=== PATIENT | female | born 1965 | race Caucasian/White ===

== ENCOUNTER 2024-08-18 01:42 | Day surgery (SDC) | payer BC, SELFPAY ==
[2024-08-07 09:15] VITALS: BMI 20.2
--- OUTSIDE RECORDS SUMMARY | 2024-08-18 01:52 | XMS_ITS | Patient Health Summary ---
Author Organization [facility] Address [address] [facility] [facility] [place] [address] Care Team Providers Care Patient Registration Representative Name Role Phone Marck Keith MD Primary Care Provider [phone] [facility],non-owned Affiliates and Associated Physician Practices is amultiple site organization consisting of ambulatory clinics and hospital sitesin [place], [place], [place] and [place]. This disclosure is being madepursuant to the Care Everywhere program and may not contain all information available regarding this patient. Last updated 18.[facility] [employer] Allergies No known active allergies Medications * Be aware that medications may not be up to date on this document. Alwaysverify current medications with the patient. * liothyronine (CYTOMEL) 25 MCG tablet(Started 09/22/2021) Take 0.5 (one-half) tablet by mouth 2 times daily * Progesterone 100 MG capsule(Started 09/22/2021) Take 1 (one) capsule by mouth at bedtime * vitamin D3 (CHOLECALCIFEROL) 10 MCG (400 UNIT) capsule Take 1 (one) capsule by mouth once daily * Magnesium Oxide 400 MG Take 1 capsule by mouth once daily * multivitamins (ONE A DAY) capsule Take 1 (one) capsule by mouth once daily Active Problems Problem Noted Date Diagnosed Date Essential hypertension 12/18/2018 Acne 11/22/2010 Immunizations * Covid Pfizer primary monovalent 12+ yr 0.3mL Purple cap(Given 03/08/2021, 02/15/2021) * INFLUENZA VACCINE(Given 04/22/2019) * INFLUENZA VACCINE, CELL CULTURE, QUADR. (FLUCELVAX QUADRIVALENT; 6MO+) (CCIIV4)(Given 04/16/2020) * TDAP (7yrs+)(Given 04/26/2020) Social History Tobacco Use Types Packs/Day Years Used Date Smoking Tobacco: Never Smokeless Tobacco: Never Alcohol Use Standard Drinks/Week Comments No 0 (1 standard drink = 0.6 oz pur e alcohol) Sex and Gender Information Value Date Recorded Sex Assigned at Not on file Gender Identity Not on file Sexual Orientation Not on file Procedures * HCG URINE QUALITATIVE - POCT (IP) [facility](Performed 11/29/2010) * HCG URINE QUALITATIVE - POCT (IP) [facility](Performed 10/12/2010) * PATHOLOGY/GENETICS HISTORICAL-ONBASE(Performed 10/12/2010) * LAB HISTORICAL RESULTS-ONBASE(Performed 10/12/2010) * LAB HISTORICAL RESULTS-ONBASE(Performed 10/12/2010) * LAB HISTORICAL RESULTS-ONBASE(Performed 10/12/2010) * LAB HISTORICAL RESULTS-ONBASE(Performed 10/12/2010) * LAB HISTORICAL RESULTS-ONBASE(Performed 10/12/2010) * LAB HISTORICAL RESULTS-ONBASE(Performed 10/12/2010) * LAB HISTORICAL RESULTS-ONBASE(Performed 10/12/2010) * CBC W AUTO DIFFERENTIAL(Performed 10/08/2010) * HEPATIC FUNCTION PANEL(Performed 10/08/2010) * LIPID PROFILE(Performed 10/08/2010) Results * HCG URINE QUALITATIVE - POCT (IP) [facility] (11/29/2010 10:37 AM CDT) Only the most recent of2 resultswithin the time period is included. Test Urine Neg [facility] Urine specimen (specimen) 11/29/2010 10:37 AM CDT Lexi Casanova MD LAB - POINT OF CARE ORDERABLES [facility] * PATHOLOGY/GENETICS HISTORICAL-ONBASE (10/12/2010) 10/12/2010 Valarie Josue MD LAB - CHEMISTRY OR DERABLES [facility] * LAB HISTORICAL RESULTS-ONBASE (10/12/2010) Only the most recent of7 resultswithin the time period is included. 10/12/2010 Valarie Josue MD LAB - CHEMISTRY OR DERABLES [facility] * (ABNORMAL) CBC W AUTO DIFFERENTIAL (10/08/2010 10:05 AM CDT) WBC 5.8 3.8 - 10.8 Thousand/u L [facility] RBC 4.75 3.80 - 5.10 Million/uL [facility] Hemoglobin 13.9 11.7 - 15.5 g/dL [facility] Hematocrit 41.5 35.0 - 45.0 % [facility] MCV 87.3 80.0 - 100.0 fL [facility] MCH 29.2 27.0 - 33.0 pg [facility] MCHC 33.5 32.0 - 36.0 g/dL [facility] RDW 15.1(H) 11.0 - 15.0 % [facility] Platelet 253 140 - 400 Thousand/u L [facility] Neutrophils Absolute 3381 1500 - 7800 cells/uL [facility] Lymphocyte Absolute 1723 850 - 3900 cells/uL [facility] Monocytes Absolute 568 200 - 950 cells/uL [facility] Eosinophils Absolute 116 15 - 500 cells/uL [facility] Basophils Absolute 12 0 - 200 cells/uL [facility] Neutrophils % 58.3 % [facility] Lymphocytes % 29.7 % [facility] Monocytes % 9.8 % [facility] Eosinophils % 2.0 % [facility] Basophils % 0.2 % [facility] Comment: REPORT COMMENT: FASTING Test Performed at: [facility] [address] ??[phone] ROSS GUADALUPE DO,MPH 10/08/2010 10:0 5 AM CDT 10/08/2010 10:11 AM CDT Lexi Casanova MD LAB - HEMATOLOGY ORD ERABLES [facility] * HEPATIC FUNCTION PANEL (10/08/2010 10:05 AM CDT) Protein Total 7.8 6.2 - 8.3 g/dL [facility] Albumin 4.8 3.6 - 5.1 g/dL [facility] Globulin 3.0 2.2 - 3.9 g/dL (calc) [facility] Albumin/Globulin Ratio 1.6 1.0 - 2.1 (calc) [facility] Bilirubin Total 0.5 0.2 - 1.2 mg/dL [facility]) Bilirubin Direct 0.1 < OR = 0.2 mg/dL [facility]) Bilirubin Indirect 0.4 0.2 - 1.2 mg/dL (calc) [facility]) Alkaline Phosphatase 101 33 - 115 U/L [facility] AST 25 10 - 35 U/L [facility] ALT 21 6 - 40 U/L [facility]) Comment: Test Performed at: [facility] [place], [place] ??[phone] ROSS GUADALUPE DO,MPH 10/08/2010 10:0 5 AM CDT 10/08/2010 10:11 AM CDT Lexi Casanova MD LAB - CHEMISTRY [facility] Performing Organization Address [facility] Co de Phone Number [facility] * (ABNORMAL) LIPID PROFILE (10/08/2010 10:05 AM CDT) Cholesterol Total 165 125 - 200 mg/dL [facility]) HDL 34(L) > OR = 46 mg/dL [facility]) Triglycerides 128 <150 mg/dL [facility]) LDL Calculated 105 <130 mg/dL (calc) [facility]) Comment: Desirable range <100 mg/dL for patients with CHD or diabetes and <70 mg/dL for diabetic patients with known heart disease. Chol/HDL Ratio 4.9 < OR = 5.0 (calc) [facility]) Comment: Test Performed at: [employer] [employer] [facility] [place], [place] ??[phone] ROSS GUADALUPE DO,MPH 10/08/2010 10:0 5 AM CDT 10/08/2010 10:11 AM CDT Lexi Laura Casanova MD LAB - CHEMISTRY [facility] Organization Address City/State/ZIP Co de Phone Number [facility]) Care Teams Patient Registration Representative Relationship Specialty Start Date End Date Marck Keith MD PCP - General 07/30/08
--- OUTSIDE RECORDS SUMMARY | 2024-08-18 01:52 | XMS_ITS | Referral Summary ---
Author Organization [facility] [address] Address [address] [place] [address] Care Team Providers Care Seconds Grader Name Role Phone Moo Solano DO Unavailable Moo Solano DO Primary Care Provide r Encounters Date Type Department Care Team Description 06/09/2024 8:15 AM GROUP UNDERWRITER - 06/09/2024 11:59 PM [facility] Hospital Encounter [facility] Breast [facility] ([facility]) [address] [place] [address] Screening mammogram, encounter for Discharge Disposition: Discharge to home or self care from Last 3 Months Allergies No known active allergies Medications magnesium oxide 400 mg magnesium capsule Take by mouth Active multivitamin capsule Take 1 capsule by mouth daily Active cholecalcifero l (VITAMIN D-3) 400 unit capsule Active neomycin-polym yxin-HC (CORTISPORIN) 3.5-10,000-1 mg/mL-unit/mL- % otic suspensionIndi cations:Acute contact otitis externa of left ear Administer 3 drops into the left ear 3 (three) times a day 4 mL 2 Active metFORMIN XR (GLUCOPHAGE XR) 500 mg 24 hr tablet Take 2 tablets (1,000 mg total) by mouth daily 2 Active progesterone (PROMETRIUM) 100 mg capsule Take 1 capsule (100 mg total) by mouth nightly 2 Active spironolactone (ALDACTONE) 50 mg tablet Take 1 tablet (50 mg total) by mouth daily 2 Active Mounjaro 5 mg/0.5 mL pen injector INJECT 0.5ML SUBCUTANEOUSLY EVERY WEEK 2 Active liothyronine (CYTOMEL) 5 mcg tablet 2 Active Active Problems Problem Noted Date Diagnosed Date Impacted cerumen of left ear 04/14/2024 Conductive hearing loss of left ear 04/14/2024 Immunizations Name Administration Dates Next Due Pfizer SARS-CoV-2 Monovalent Vaccination (12+ Yrs) PURPLE 03/08/2021,02/15/2021 Social History Tobacco Use Types Packs/Day Years Used Date Smoking Tobacco: Never Smokeless Tobacco: Never AUDIT-C Answer Date Recorded Q1: How often do you have a drink containing alc ohol? Never 11/19/2023 Average Number of Drinks Not on file 024 Frequency of Binge Drinking Not on file 10/22 Comments Unknown Sex and Gender Information Value Date Recorded Sex Assigned at Not on file Legal Sex Female 3:50 AM GROUP UNDERWRITER Gender Identity Not on file Sexual Orientation Not on file Last Filed Vital Signs Vital Sign Reading Time Taken Comments Blood Pressure - - Pulse - - Temperature - - Respiratory Rate 18 04/14/2024 11:34 AM CDT Oxygen Saturation - - Inhaled Oxygen Concentration - - Weight 65.8 kg (145 lb) 04/14/2024 11:34 AM CDT Height 177.8 cm (5' 10 ) 04/14/2024 11:34 AM CDT Body Mass Index 20.81 04/14/2024 11:34 AM CDT Plan of Treatment Not on file Procedures Procedure Name Priority Date/Time Associated Diagnosis Comments SCREENING MAMMOGRAM BILATERAL W RODGER Schedule Routine, Read Routine (OP Routine) 06/09/2024 8:46 AM GROUP UNDERWRITER Screening mammogram, encounter for from Last 3 Months Results * Screening Mammogram Bilateral W Rodger (06/09/2024 8:46 AM GROUP UNDERWRITER) Anatomical Region Laterality Modality Breast Bilateral Mammography Narrative 06/10/2024 1:41 PM GROUP UNDERWRITER Mammogram Technique: Bilateral Digital Breast Tomosynthesis, Bilateral C-view 2D Screening mammogram. ??Views obtained: ??bilateral craniocaudal and bilateral mediolateral oblique. ??Computer Aided Detection was performed. Mammogram Findings: The present examination has been compared to prior imaging studies performed at [facility] on 09/21/2020, 01/17/2022 and 06/06/2023. There are scattered areas of fibroglandular density. There is no suspicious abnormality in either breast. Impression: There is no mammographic evidence of malignancy. Annual screening mammography is recommended. OVERALL FINAL ASSESSMENT: BI-RADS CATEGORY 1: ??Negative. Procedure Note Massiel Ramesh MD - 06/10/2024 Mammogram Technique: Bilateral Digital Breast Tomosynthesis, Bilateral C-view 2D Screening mammogram. Views obtained: bilateral craniocaudal and bilateral mediolateral oblique. Computer Aided Detection was performed. Mammogram Findings: The present examination has been compared to prior imaging studies performed at [facility] on 09/21/2020, 01/17/2022 and 06/06/2023. There are scattered areas of fibroglandular density. There is no suspicious abnormality in either breast. Impression: There is no mammographic evidence of malignancy. Annual screening mammography is recommended. OVERALL FINAL ASSESSMENT: BI-RADS CATEGORY 1: Negative. us Self Screening Mammogram IMG MAMMO PROCEDURES Fi nal Result from Last 3 Months Insurance [facility] [place] [facility] Care Teams Seconds Grader Relationship Specialty Start Date End Date Moo Solano DO [address] [id number] PCP - General Internal Medicine 04/08/24 Moo Solano DO Calli [address] [id number] Referring Physician Internal Medicine 06/06/23
--- OUTSIDE RECORDS SUMMARY | 2024-08-18 01:52 | XMS_ITS | Clinical Summary ---
Author Organization [facility] Address [facility] [facility] [place] [address] Care Team Providers Care Fuel House Attendant Name Role Phone Marck Keith MD Primary Care Provider [phone] Source Comments [facility],non-owned Affiliates and Associated Physician Practices is amultiple site organization consisting of ambulatory clinics and hospital sitesin [place], [place], [place] and [place]. This disclosure is being madepursuant to the Care Everywhere program and may not contain all information available regarding this patient. Last updated 18.[facility] Allergies No known active allergies Medications * Be aware that medications may not be up to date on this document. Alwaysverify current medications with the patient. Medication Sig Dispensed Refills Start Date End Date Status liothyronine (CYTOMEL) 25 MCG tablet Take 0.5 (one-half) tablet by mouth 2 times daily 09/22/2021 Active Progesterone 100 MG capsule Take 1 (one) capsule by mouth at bedtime 09/22/2021 Active vitamin D3 (CHOLECALCIFEROL) 10 MCG (400 UNIT) capsule Take 1 (one) capsule by mouth once daily Active Magnesium Oxide 400 MG Take 1 capsule by mouth once daily Active multivitamins (ONE A DAY) capsule Take 1 (one) capsule by mouth once daily Active Active Problems Problem Noted Date Diagnosed Date Essential hypertension 12/18/2018 Acne 11/22/2010 Immunizations Name Administration Dates Next Due Covid Pfizer primary monoval ent 12+ yr 0.3mL Purple cap 03/08/2021,02/15/2021 INFLUENZA VACCINE 04/22/2019 INFLUENZA VACCINE, CELL CULT URE, QUADR. (FLUCELVAX QUADRIVALENT; 6MO+) (CCIIV4) 04/16/2020 TDAP (7yrs+) 04/26/2020 Family History Medical History Relation Name Comments Cancer Father Prostate Colon Liver; Status: Alive Cancer - Colon Father Cancer - Prostate Father Arthritis - Osteo Mother Hypertension Mother Cancer - Skin, Melanoma Neg Hx Cancer - Skin, Non Melanoma Neg Hx Relation Name Status Comments Father Mother Social History Tobacco Use Types Packs/Day Years Used Date Smoking Tobacco: Never Smokeless Tobacco: Never Alcohol Use Standard Drinks/Week Comments No 0 (1 standard drink = 0.6 oz pur e alcohol) Sex and Gender Information Value Date Recorded Sex Assigned at Not on file Gender Identity Not on file Sexual Orientation Not on file Plan of Treatment Upcoming Encounters Date Type Department Care Team (Late st Contact Info) Description 09/30/2024 1:30 PM CDT Cosmetic Visit [facility] - Cosmetic Dermatology [address] [place] [address] Elli Archer MD [address] [facility] [address] [address] Health Maintenance Due Date Last Done Comments COLOGUARD (AGES 45-75) - COLON CA SCREENING 1964 COLON MONITORING 1964 COLONOSCOPY - COLON CA SCREENING 1964 CT COLONOGRAPHY - COLON CA SCREENING 1964 Colorectal Cancer Screening 1964 FIT - COLON CA SCREENING 1964 FLEX SIG - COLON CA SCREENING 1964 PAP SMEAR 1964 HIV SCREENING 1979 HEPATITIS C SCREENING 06/27/1982 PNEUMOCOCCAL VACCINE 50+ (1 of 1 - PCV) 2014 ZOSTER VACCINE (1 of 2) 2014 LIPID TESTING 10/09/2015 10/08/2010 COVID-19 VACCINE (3 season) 2024 03/08/2021, 02/15/2021 INFLUENZA VACCINE (#1) 2024 04/16/2020, 2018 DEPRESSION SCREENING 07/23/2024 MAMMOGRAM 06/06/2025 06/06/2023, 05/23, 01/17/2022, Additional history exists DTAP/TDAP/TD VACCINES (2 - Td or Tdap) 04/26/2030 04/26/2020 Respiratory Syncytial Virus (RSV) Vaccine Pt: or over 60 yrs (1 - 1-dose 75+ series) 2039 HEPATITIS B VACCINE Aged Out No longe r eligible based on patient's age to complete this topic HIB VACCINE Aged Out No longer eligi ble based on patient's age to complete this topic HPV VACCINE Aged Out No longer eligi ble based on patient's age to complete this topic MENINGOCOCCAL (Group B) VACCINE Aged Out No longer eligible based on patient's age to complete this topic MENINGOCOCCAL VACCINE Aged Out No jason ekaterina eligible based on patient's age to complete this topic Procedures Procedure Name Priority Date/Time Associated Diagnosis Comments LIPID PROFILE Routine 10/08/2010 10:05 AM CDT from Last 3 Months or Most Recently Relevant to Health Maintenance Results * (ABNORMAL) LIPID PROFILE (10/08/2010 10:05 AM CDT) Cholesterol Total 165 125 - 200 mg/dL [facility] HDL 34(L) > OR = 46 mg/dL [facility]) Triglycerides 128 <150 mg/dL [facility]) LDL Calculated 105 <130 mg/dL (calc) [facility]) Comment: Desirable range <100 mg/dL for patients with CHD or diabetes and <70 mg/dL for diabetic patients with known heart disease. Chol/HDL Ratio 4.9 < OR = 5.0 (calc) [facility]) Comment: Test Performed at: [facility] [address] ??[phone] ROSS UGADALUPE DO,MPH 10/08/2010 10:0 5 AM CDT 10/08/2010 10:11 AM CDT Lexi Casanova MD LAB - CHEMISTRY [facility]) from Last 3 Months or Most Recently Relevant to Health Maintenance Care Teams Fuel House Attendant Relationship Specialty Start Date End Date Marck Keith MD PCP - General 07/30/08
--- OUTSIDE RECORDS SUMMARY | 2024-08-18 01:52 | XMS_ITS | Clinical Summary ---
Author Organization [facility] Address [address] [place] [address]. [place], [place] [address] [place] [address] Care Team Providers Care Certified Pathology Assistant Name Role Phone Ji Sands MD Unavailable Ji Sands MD Primary Care Provider [phone] Jarrod Sanchez MD Unavailable Unavailable Rekha Newsome NP Unavailable [phone] Allergies No known active allergies Medications carvedilol 6.25 MG tablet Take 1 tablet (6.25 mg total) by mouth 2 (two) times daily. 60 tablet 1 12/18/2018 Active Active Problems Problem Noted Date Diagnosed Date Essential hypertension 12/18/2018 Family History Medical History Relation Comments Heart Attack Mother Relation Status Comments Mother Social History Tobacco Use Types Packs/Day Years Used Date Smoking Tobacco: Never Smokeless Tobacco: Never Alcohol Use Standard Drinks/Week Comments No 0 (1 standard drink = 0.6 oz pur e alcohol) AUDIT-C Answer Date Recorded Frequency of Alcohol Consumption Never 12/18/2018 Average Number of Drinks Not on file 019 Frequency of Binge Drinking Not on file 11/21 Comments Unknown Sex and Gender Information Value Date Recorded Sex Assigned at Not on file Legal Sex Female 12:52 PM CDT Gender Identity Not on file Sexual Orientation Not on file Last Filed Vital Signs Vital Sign Reading Time Taken Comments Blood Pressure 123/81 12/30/2018 10:05 AM CDT Pulse 81 12/30/2018 10:05 AM CDT Temperature - - Respiratory Rate 18 12/18/2018 11:43 AM CDT Oxygen Saturation - - Inhaled Oxygen Concentration - - Weight 93.7 kg (206 lb 9.6 oz) 12/18/2018 11:43 AM CDT Height 177.8 cm (5' 10 ) 12/18/2018 11:43 AM CDT Body Mass Index 29.64 12/18/2018 11:43 AM CDT Plan of Treatment Health Maintenance Due Date Last Done Comments Cervical Cancer Screening Pa p Smear (Age 30 to 64) Every 3 Years 1964 Colorectal Cancer Screening Colonoscopy (10 Years) 1964 Annual Physical 1967 Hepatitis C 1982 DTaP, Tdap and Td Vaccines ( 1 - Tdap) 1983 Cervical Cancer Screening Pa p with HPV Testing (Age 30 to 64) Every 5 Years 1994 Cervical Cancer Screening with HPV 1994 Mammogram Screening 2004 Zoster Vaccines (1 of 2) 2014 COVID-19 Vaccine (2023-2 5 season) 2024 Influenza Adult (#1) 2024 RSV Immunization or 60+ Years (1 - 1-dose 75+ series) 2039 Meningococcal B Vaccine Aged Out No l onger eligible based on patient's age to complete this topic Meningococcal Vaccine Aged Out No jason ekaterina eligible based on patient's age to complete this topic Pneumococcal Vaccine: Pediat rics (0 to 5 Years) and At-Risk Patients (6 to 64 Years) Aged Out No longer eligible b ased on patient's age to complete this topic RSV Immunizations Under 20 Months Aged Out No longer eligible based on patient's age to complete this topic Insurance [facility] Care Teams Certified Pathology Assistant Relationship Specialty Start Date End Date Ji Sands MD [facility] [address] [place] [address] PCP - General OBGYN 11/14/18 Ji Sands MD [facility] [address] [place] [address] OBGYN 11/13/18 Jarrod Sanchez MD [facility] [address] [place] [address] Consulting Physician INTERVENTIONAL CARDIOLOGY 11/14/18 Rekha Newsome NP [facility]sh [facility] [address] [place] [address] Nurse Practitioner NURSE PRACTITIONER 11/14/18
--- OUTSIDE RECORDS SUMMARY | 2024-08-18 01:52 | XMS_ITS | Referral Summary ---
Author Organization [facility] Address [facility] [place] [address] Care Team Providers Care Top Printing Press Operator Name Role Phone Marck Keith MD Primary Care Provider [phone] Source Comments [facility],non-owned Affiliates and Associated Physician Practices is amultiple site organization consisting of ambulatory clinics and hospital sitesin [place], [place], [place] and [place]. This disclosure is being madepursuant to the Care Everywhere program and may not contain all information available regarding this patient. Last updated 18.[facility] Allergies No known active allergies Medications * [...] QUADRIVALENT; 6MO+) (CCIIV4) 04/16/2020 TDAP (7yrs+) 04/26/2020 Social History Tobacco Use Types Packs/Day Years [...] Description 09/30/2024 1:30 PM CDT Cosmetic Visit [facility] - Cosmetic Dermatology [address] [place] [address] Elli Archer MD [address] [place] [address] Procedures Procedure Name Priority Date/Time Associated Diagnosis Comments LIPID PROFILE Routine 10/08/2010 10:05 AM CDT from Last 3 Months or Most Recently Relevant to Health Maintenance Results * (ABNORMAL) LIPID PROFILE (10/08/2010 10:05 AM CDT) Cholesterol Total 165 125 - 200 mg/dL [facility] HDL 34(L) > OR = 46 mg/dL [facility]) Triglycerides 128 <150 mg/dL [facility]) LDL Calculated 105 <130 mg/dL (calc) [facility]) Comment: Desirable range <100 mg/dL for patients with CHD or diabetes and <70 mg/dL for diabetic patients with known heart disease. Chol/HDL Ratio 4.9 < OR = 5.0 (calc) [facility]) Comment: Test Performed at: [facility] [id number] [place] [address] ??[phone] ROSS GUADALUPE DO,MPH 10/08/2010 10:0 5 AM CDT 10/08/2010 10:11 AM CDT Lexi Casanova MD LAB - CHEMISTRY [facility]) from Last 3 Months or Most Recently Relevant to Health Maintenance Care Teams Top Printing Press Operator Relationship Specialty Start Date End Date Marck Keith MD PCP - General 07/30/08
--- OUTSIDE RECORDS SUMMARY | 2024-08-18 01:52 | XMS_ITS | Encounter Summary ---
Author Organization [facility] - [facility] Address [address] [place] [address]. [place], [place] [id number] [place] [id number] Care Team Providers Care Hand Shaper Name Role Phone Ji Sands MD Unavailable [phone] Ji Sands MD Primary Care Provider + [phone] Jarrod Sanchez MD Unavailable Unavailable Rekha Newsome CHROME WORKER Unavailable [phone] Encounter Details Date Type Department Care Team (Late st Contact Info) Description 11/29/2018 Abstract [facility] [address] [place] [address] Abstract, Doc [facility] Social History Tobacco Use Types Packs/Day Years Used Date Smoking Tobacco: Never Assessed Comments Unknown Sex and Gender Information Value Date Recorded Sex Assigned at Not on file Legal Sex Female 12:52 PM CDT Gender Identity Not on file Sexual Orientation Not on file documented as of this encounter Plan of Treatment Not on file documented as of this encounter Visit Diagnoses Not on filedocumented in this encounter Care Teams Hand Shaper Relationship Specialty Start Date End Date Ji Sands MD [facility] [address] [place] [address] PCP - General OBGYN 11/14/18 Ji Sands MD [facility] [address] [place] [address] OBGYN 11/13/18 Jarrod Sanchez MD [facility] [address] [place] [address] Consulting Physician INTERVENTIONAL CARDIOLOGY 11/14/18 Rekha Newsome NP [address] [facility] [address] [place] [address] Nurse Practitioner NURSE PRACTITIONER 11/14/18 documented as of this encounter
--- OUTSIDE RECORDS SUMMARY | 2024-08-18 01:52 | XMS_ITS | Clinical Summary ---
Author Organization [facility] [address] Address [address] [place] [address] Care Team Providers Care Bus Assistant Name Role Phone Moo Solano DO Unavailable Moo Solano DO Primary Care Provide r Allergies No known active allergies Medications magnesium [...] Conductive hearing loss of left ear 04/14/2024 Encounters Date Type Department Care Team Description 06/09/2024 8:15 AM MOTOR POWER CONNECTOR - 06/09/2024 11:59 PM MOTOR POWER CONNECTOR Hospital Encounter [facility] Breast Imaging [facility] ([facility]) [address] [place] [address] Screening mammogram, encounter for Discharge Disposition: Discharge to home or self care from Last 3 Months Immunizations Name Administration Dates Next Due Pfizer SARS-CoV-2 Monovalent Vaccination (12+ Yrs) PURPLE 03/08/2021,02/15/2021 Surgical History Surgery Date Site/Laterality Comments ABDOMINOPLASTY 07/23/2004 - 07/22/2005 Medical History Medical History Date Comments Encounter for cosmetic surgery E ncounter for cosmetic surgery - (Added by TW Conv) Ear problems Back pain Thyroid activity decreased Family History Medical History Relation Name Comments Cancer Father No Known Problems Mother Relation Name Status Comments Father Mother Social [...] on file Legal Sex Female 3:50 AM MOTOR POWER CONNECTOR Gender Identity Not on file Sexual Orientation Not on file Obstetrics History Last Filed Vital Signs Vital Sign Reading [...] 04/14/2024 11:34 AM CDT Plan of Treatment Health Maintenance Due Date Last Done Comments Cervical Cancer Screening 1964 Colon Cancer Screening-Colonoscopy 1964 Depression Screening 1964 Hepatitis C Screening 1964 Hepatitis B Screening 1982 Regular Well Visit/Exam 18-64 1982 Zoster Vaccine (1 of 2) 2014 Covid-19 Vaccine ( - season) 2024 03/08/2021, 02/15/2021 Influenza Vaccine (#1) 2024 0, 04/16/2020, 04/22/2019 Breast Cancer Screening-Mammogram 06/09/2025 06/09/2024, 06/06/2023, 01/17/2022, Additional history exists DTaP/Tdap/Td Vaccine (2 - Td or Tdap) 04/26/2030 04/26/2020 Pneumococcal vaccine <65 Aged Out No longer eligible based on patient's age to complete this topic Procedures Procedure Name Priority Date/Time Associated Diagnosis Comments SCREENING MAMMOGRAM BILATERAL W RODGER Schedule Routine, Read Routine (OP Routine) 06/09/2024 8:46 AM MOTOR POWER CONNECTOR Screening mammogram, encounter for from Last 3 Months Results * Screening Mammogram Bilateral W Rodger (06/09/2024 8:46 AM MOTOR POWER CONNECTOR) Anatomical Region Laterality Modality Breast Bilateral Mammography Narrative 06/10/2024 1:41 PM MOTOR POWER CONNECTOR Mammogram Technique: Bilateral Digital Breast Tomosynthesis, Bilateral C-view 2D Screening mammogram. ??Views obtained: ??bilateral craniocaudal and bilateral mediolateral oblique. ??Computer Aided Detection was performed. Mammogram Findings: The present examination has been compared to prior imaging studies performed at [facility] on 09/21/2020, 01/17/2022 and 06/06/2023. There are [...] compared to prior imaging studies performed at [facility] on 09/21/2020, 01/17/2022 and 06/06/2023. There are scattered areas of fibroglandular density. There is no suspicious abnormality in either breast. Impression: There is no mammographic evidence of malignancy. Annual screening mammography is recommended. OVERALL FINAL ASSESSMENT: BI-RADS CATEGORY 1: Negative. us Self Screening Mammogram IMG MAMMO PROCEDURES Fi nal Result from Last 3 Months Insurance [employer] [place] [employer] [place] [employer] [facility] Care Teams Bus Assistant Relationship Specialty Start Date End Date Moo Solano DO [address] [place] [address] PCP - General Internal Medicine 04/08/24 Moo Solano DO [address] [place] [address] Referring Physician Internal Medicine 06/06/23
[2024-08-18 08:46] VITALS: BP 125/104; PULSE 92; RESP 16; TEMP 36.2; O2SAT 100
--- NOTE | 2024-08-18 08:50 | WPDANESEPPF ---
Anes - Initial Pre Proc Eval Procedure: Operation Date: 08/18/24 10:00 Proposed Procedures p Screening Colonoscopy - Miles Mendez MD Date/Time: 08/18/24 08:50 Surgeon: Miles Mendez MD Pre Op Diagnosis: screening malignant neoplasm colon Patient Data Age: 59 Gender: F Height: 1.78 m Weight: 63.2 kg Last Vital Signs Temp 36.2 C L 08/18/24 08:46 Pulse 92 08/18/24 08:46 Resp 16 08/18/24 08:46 BP 125/104 H 08/18/24 08:46 Pulse Ox 100 08/18/24 08:46 O2 Del Method Room Air 08/18/24 08:46 Allergies Allergy/AdvReac Type Severity Reaction Status Date / Time No Known Allergies Allergy Verified 08/18/24 08:45 Home Medications ?Medication ?Instructions ?Recorded ?Confirmed ?Type Testosterone/Estrogen IM 08/07/24 History liothyronine 5 mcg tablet 5 mcg PO DAILY 08/07/24 08/07/24 History magnesium carb,citrate,oxide 300 mg PO DAILY 08/07/24 08/07/24 History multivitamin (Daily Multi-Vitamin 1 tablet PO DAILY 08/07/24 08/07/24 History tablet) ondansetron 4 mg disintegrating 4 mg PO Q6H PRN nausea and 08/07/24 Rx tablet vomiting #4 tabs progesterone micronized 100 mg 100 mg PO DAILY 08/07/24 08/07/24 History capsule tirzepatide subcut WEEKLY 08/07/24 History Patient hx anesthesia problems: none Family hx anesthesia problems: none Results Review: All pre-operative results and documents have been reviewed as part of the pre-operative evaluation. [facility] Family History Family History (Updated 01/25/17 @ 11:14 by DOCTOR UNKNOWN) Other Carcinoma of colon Family history of arthritis Family history of primary malignant neoplasm of liver Hypertension Social History Social History Smoking status: Never smoker Alcohol intake: never Living arrangements: with family Spiritual care concerns: No Anes - Eval Final PreProcedure Day of Procedure 08/18/24 08:50 Patient weight: normal Heart: regular rate and rhythm Lungs: clear to auscultation Airway: Mallampati scale class II Neurological: alert and oriented Last oral intake: >/= 8 hours ASA classification: II Emergent: no Anesthetic plan: proceed Anesthesia type and monitoring: general GIVS and standard monitoring Results Review: All pre-operative results and documents have been reviewed as part of the pre-operative evaluation. Informed Consent: The patient's anesthetic plan and its attendant risks and benefits were discussed with the patient/family/POA. Questions were solicited and answers provided to the satisfaction of the patient/family/POA.
[2024-08-18] MEDS: LACTATED RINGERS 1,000 ML 150 ML IV CONT (08:52)
--- NOTE | 2024-08-18 09:04 | PM.HPGS ---
History of Present Illness History of Present Illness Consent: Risks, benefits, and alternatives have been discussed and questions answered. Patient agrees to proceed with procedure. Chief complaint: screening malignant neoplasm colon Narrative: Massiel Hsieh is a 59 year old female here for screening colonoscopy, father had colon cancer, last colonoscopy 12 years ago Review of Systems Review of Systems: All systems reviewed & are unremarkable except as noted in HPI and below PMFSH Past Medical History Medical History (Updated 08/18/24 @ 09:05 by Miles Mendez MD) Family history of colon cancer in father Family History Family History (Updated 01/25/17 @ 11:14 by DOCTOR UNKNOWN) Other Carcinoma of colon Family history of arthritis Family history of primary malignant neoplasm of liver Hypertension Social History Social History Smoking status: Never smoker Alcohol intake: never Living arrangements: with family Spiritual care concerns: No Meds Home Medications and Allergies Home Medications ?Medication ?Instructions ?Recorded ?Confirmed ?Type Testosterone/Estrogen IM 08/07/24 History liothyronine 5 mcg tablet 5 mcg PO DAILY 08/07/24 08/07/24 History magnesium carb,citrate,oxide 300 mg PO DAILY 08/07/24 08/07/24 History multivitamin (Daily Multi-Vitamin 1 tablet PO DAILY 08/07/24 08/07/24 History tablet) ondansetron 4 mg disintegrating 4 mg PO Q6H PRN nausea and 08/07/24 Rx tablet vomiting #4 tabs progesterone micronized 100 mg 100 mg PO DAILY 08/07/24 08/07/24 History capsule tirzepatide subcut WEEKLY 08/07/24 History Allergies Allergy/AdvReac Type Severity Reaction Status Date / Time No Known Allergies Allergy Verified 08/18/24 08:45 Vital Signs Vital Signs - 24 hr 08/18/24 08:46 Temperature 97.2 F L Pulse Rate 92 Respiratory Rate 16 Blood Pressure 125/104 H Pulse Oximetry 100 Oxygen Delivery Room Air Exam Const: General: comfortable and no acute distress HENMT: Face/Nose/Sinus: Normal nares present Eyes: General: appearance normal, both eyes and all related structures Neck: Neck: no JVD Resp: Auscultation: clear to auscultation bilaterally Cardio: Rate: regular rate Rhythm: regular rhythm GI: Inspection: non-distended GI Palp: Yes Soft to palpation Skin: General skin exam: normal color Neuro: General: gait normal Speech: normal speech Extrem: General: normal to inspection Psych: Mental Status: mental status grossly normal Assessment and Plan Assessment and plan (1) Family history of colon cancer in father: Code(s): Z80.0 - Family history of malignant neoplasm of digestive organs Status: Acute Assessment and Plan: colonoscopy
[2024-08-18 09:19] VITALS: BP 86/48; PULSE 71; RESP 16; O2SAT 98
[2024-08-18 09:29] VITALS: BP 88/53; PULSE 76; RESP 20; O2SAT 99
[2024-08-18 09:39] VITALS: BP 106/66; PULSE 64; RESP 20; O2SAT 100
== END 2024-08-18 09:57 | disposition home or self-care (01) ==
PROVIDERS: Referring Provider Obstetrics & Gynecology; Visit Provider Internal Medicine Gastroenterology
PROC: 0DJD8ZZ Inspection of Lower Intestinal Tract, Via Natural or Artificial Opening Endoscopic (ICD-10-PCS; CPT 45378; principal; 2024-08-18 10:00)
DX: Z12.11 Encounter for screening for malignant neoplasm of colon (principal); K64.8 Other hemorrhoids; Z80.0 Family history of malignant neoplasm of digestive organs
CPT/HCPCS: 45378; J2704; J7120